=== PATIENT | male | born 1995 | race Caucasian/White ===

== ENCOUNTER 2017-07-09 01:18 | Emergency (ER) | payer OTHER ==
[~2017-07-09] VITALS: Ht 177.8 cm; Wt 109.1 kg
[2017-07-09] MEDS ORDERED: ACETAMINOPHEN/CODEINE 300-30 MG TABLET PO ONE (05:30)
[2017-07-09] MEDS ORDERED: IBUPROFEN 600 MG TABLET PO ONE (05:30)
[2017-07-09 05:38] VITALS: BP 144/85
== END 2017-07-09 05:40 | disposition home or self-care (01) ==
LOC: EMS 01:19
DX: S50.01XA Contusion of right elbow, initial encounter (principal); M54.6 Pain in thoracic spine; V43.52XA Car driver injured in collision with other type car in traffic accident, initial encounter; Y93.89 Activity, other specified; Y92.89 Other specified places as the place of occurrence of the external cause; Y99.8 Other external cause status
CPT/HCPCS: 99283

== ENCOUNTER 2018-01-13 03:01 | Emergency (ER) | payer OTHER ==
[~2018-01-13] VITALS: Ht 177.8 cm; Wt 103.0 kg
[2018-01-13 03:28] LABS: BASOPHILS % (AUTO) 0.8 % (0.0-2.0); EOSINOPHILS % (AUTO) 1.2 % (1.0-6.0); HEMATOCRIT 41.9 % (41-53); HEMOGLOBIN 14.6 g/dL (13.5-17.5); LYMPHOCYTES # (AUTO) 3.9 K/uL (1.0-4.8); LYMPHOCYTES % (AUTO) 33.9 % (22.0-44.0); MEAN CORPUSCULAR HEMOGLOBIN 29.9 pg (26.0-34.0); MEAN CORPUSCULAR HGB CONC 34.9 G/dL (31.0-37.0); MEAN CORPUSCULAR VOLUME 86 fL (80-100); MONOCYTES # (AUTO) 1.1 K/uL (0.1-1.0); MONOCYTES % (AUTO) 9.4 % (2.0-9.0); NEUTROPHILS # (AUTO) 6.3 K/uL (1.8-7.7); NEUTROPHILS % (AUTO) 54.7 % (40.0-70.0); PLATELET COUNT (AUTO) 329 K/uL (150-450); RED CELL DISTRIBUTION WIDTH 12.7 % (11.5-14.5)
[2018-01-13 03:39] LABS: ANION GAP 8 mmol/L (8-16); CALCIUM, TOTAL 8.9 mg/dL (8.8-10.5); CARBON DIOXIDE 31 mmol/L (22-29); CHLORIDE 100 mmol/L (98-107); CREATININE 0.88 mg/dL (0.60-1.30); GLOMERULAR FILTR. RATE CALC > 60 mL/min (>60); GLUCOSE,RANDOM 105 mg/dL (70-110); POTASSIUM 3.9 mmol/L (3.5-5.1); SODIUM SERUM 139 mmol/L (136-145); UREA NITROGEN, BLOOD 10 mg/dL (7-18)
[2018-01-13 03:45] LABS: ALANINE AMINOTRANSFERASE 34 U/L (12-78); ALBUMIN 4.2 g/dL (3.4-5.0); ALKALINE PHOSPHATASE 96 U/L (46-116); ASPARTATE AMINOTRANSFERASE 13 U/L (15-37); BILIRUBIN,TOTAL 0.3 mg/dL (0.1-1.0); TOTAL PROTEIN, SERUM 8.2 g/dL (6.4-8.2)
[2018-01-13 04:48] LABS: APPEARANCE,URINE CLEAR (CLEAR); BILIRUBIN,URINE NEGATIVE (NEGATIVE); GLUCOSE, URINE (UA) NEGATIVE (NEGATIVE); KETONES,URINE NEGATIVE (NEGATIVE); LEUKOCYTE ESTERASE ,URINE NEGATIVE (NEGATIVE); NITRATE,URINE NEGATIVE (NEGATIVE); OCCULT BLOOD,URINE NEGATIVE (NEGATIVE); PROTEIN,URINE TRACE (NEGATIVE); UROBILINOGEN,URINE 0.2 mg/dL (<=1.0)
[2018-01-13 05:03] LABS: BACTERIA,URINE None Seen /HPF (None Seen); RBC,URINE None Seen /HPF (0-2); SQUAMOUS EPITHELIAL CELL,UR Rare /LPF (None Seen); WBC,URINE None Seen /HPF (0-5)
[2018-01-13 06:40] VITALS: BP 130/88
== END 2018-01-13 06:53 | disposition home or self-care (01) ==
LOC: EMS 03:02
DX: N50.82 Scrotal pain (principal)
CPT/HCPCS: 76870; 99285

== ENCOUNTER 2022-11-27 21:20 | Emergency (ER) | payer OTHER ==
[~2022-11-27] VITALS: Ht 180.3 cm; Wt 127.0 kg
[2022-11-27 22:10] LABS: APPEARANCE,URINE CLEAR (CLEAR); BILIRUBIN,URINE NEGATIVE (NEGATIVE); GLUCOSE, URINE (UA) NEGATIVE (NEGATIVE); KETONES,URINE NEGATIVE (NEGATIVE); LEUKOCYTE ESTERASE ,URINE NEGATIVE (NEGATIVE); NITRATE,URINE NEGATIVE (NEGATIVE); OCCULT BLOOD,URINE NEGATIVE (NEGATIVE); PH,URINE 6.5 (5.0-8.0); PROTEIN,URINE NEGATIVE (NEGATIVE); SPECIFIC GRAVITIY, URINE 1.013 (1.003-1.030); UROBILINOGEN,URINE <=1.0 mg/dL (<=1.0)
[2022-11-27] MEDS ORDERED: KETOROLAC TROMETHAMINE 30 MG/ML VIAL IVP ONE (23:45)
[2022-11-28 00:11] LABS: BASOPHILS % (AUTO) 0.6 % (0.0-2.0); EOSINOPHILS % (AUTO) 0.9 % (1.0-6.0); HEMATOCRIT 41.5 % (41-53); LYMPHOCYTES # (AUTO) 3.4 K/uL (1.0-4.8); LYMPHOCYTES % (AUTO) 26.3 % (22.0-44.0); MEAN CORPUSCULAR HEMOGLOBIN 29.6 pg (26.0-34.0); MEAN CORPUSCULAR HGB CONC 33.8 G/dL (31.0-37.0); MEAN CORPUSCULAR VOLUME 88 fL (80-100); MONOCYTES % (AUTO) 7.8 % (2.0-9.0); NEUTROPHILS # (AUTO) 8.4 K/uL (1.8-7.7); NEUTROPHILS % (AUTO) 64.4 % (40.0-70.0); PLATELET COUNT (AUTO) 359 K/uL (150-450); RED BLOOD CELL COUNT(AUTO) 4.74 MIL/uL (4.50-5.90); RED CELL DISTRIBUTION WIDTH 13.1 % (11.5-14.5)
[2022-11-28 00:28] LABS: ANION GAP 10 mmol/L (8-16); CALCIUM, TOTAL 8.8 mg/dL (8.8-10.5); CARBON DIOXIDE 27 mmol/L (22-29); CHLORIDE 100 mmol/L (98-107); CREATININE 0.82 mg/dL (0.60-1.30); GLOMERULAR FILTR. RATE CALC > 60 mL/min (>60); GLUCOSE,RANDOM 105 mg/dL (70-110); POTASSIUM 3.5 mmol/L (3.5-5.1); SODIUM SERUM 137 mmol/L (136-145)
[2022-11-28 00:33] LABS: ALANINE AMINOTRANSFERASE 32 U/L (12-78); ALBUMIN 4.1 g/dL (3.4-5.0); ALKALINE PHOSPHATASE 99 U/L (46-116); ASPARTATE AMINOTRANSFERASE 16 U/L (15-37); BILIRUBIN,TOTAL 0.5 mg/dL (0.1-1.0); LIPASE 60 U/L (73-393); TOTAL PROTEIN, SERUM 8.3 g/dL (6.4-8.2)
[2022-11-28] MEDS ORDERED: IBUPROFEN 600 MG TABLET PO ONE (01:30)
[2022-11-28] MEDS ORDERED: ACETAMINOPHEN/CODEINE 300-30 MG TABLET PO ONE (01:30)
[2022-11-28] MEDS ORDERED: IBUP-1554 PO (01:32)
[2022-11-28] MEDS ORDERED: ACET-2080 PO (01:32)
[2022-11-28] MEDS ORDERED: TAMS-13 PO (01:32)
[2022-11-28 02:23] VITALS: BP 128/78
== END 2022-11-28 02:25 | disposition home or self-care (01) ==
LOC: EMS 21:21
DX: N20.9 Urinary calculus, unspecified (principal)
CPT/HCPCS: 99285; 96374; 80053; 81003; 83690; 85025; 36415; 74176; J1885

== ENCOUNTER 2022-12-25 13:21 | Emergency (ER) | payer OTHER ==
[~2022-12-25] VITALS: Ht 180.3 cm; Wt 122.7 kg
[~2022-12-25 13:21] MED LIST: ACET-2080 PO; IBUP-1554 PO; TAMS-13 PO
[2022-12-25 13:29] VITALS: TEMP 98.5
[2022-12-25] MEDS ORDERED: AMOX500C2 PO (17:43)
[2022-12-25 17:45] VITALS: BP 124/74; PULSE 69; RESP 17
== END 2022-12-25 17:56 | disposition home or self-care (01) ==
LOC: EMS 13:21
DX: H66.92 Otitis media, unspecified, left ear (principal); H61.22 Impacted cerumen, left ear
CPT/HCPCS: 99283; Z7502

== ENCOUNTER 2023-08-07 02:05 | Emergency (ER) | payer OTHER ==
[~2023-08-07] VITALS: Ht 180.3 cm; Wt 127.3 kg
[~2023-08-07 02:05] MED LIST changes: -ACET-2080 PO; +AMOX500C2 PO; -IBUP-1554 PO; -TAMS-13 PO
[2023-08-07 02:27] LABS: BASOPHILS % (AUTO) 0.8 % (0.0-2.0); EOSINOPHILS % (AUTO) 1.3 % (1.0-6.0); HEMATOCRIT 41.2 % (41-53); HEMOGLOBIN 13.7 g/dL (13.5-17.5); LYMPHOCYTES # (AUTO) 3.5 K/uL (1.0-4.8); LYMPHOCYTES % (AUTO) 29.1 % (22.0-44.0); MEAN CORPUSCULAR HEMOGLOBIN 29.2 pg (26.0-34.0); MEAN CORPUSCULAR HGB CONC 33.3 G/dL (31.0-37.0); MEAN CORPUSCULAR VOLUME 88 fL (80-100); MONOCYTES # (AUTO) 1.3 K/uL (0.1-1.0); MONOCYTES % (AUTO) 10.6 % (2.0-9.0); NEUTROPHILS % (AUTO) 58.2 % (40.0-70.0); PLATELET COUNT (AUTO) 370 K/uL (150-450); RED CELL DISTRIBUTION WIDTH 13.2 % (11.5-14.5); WHITE BLOOD COUNT (AUTO) 12.1 K/uL (4.5-11.0)
[2023-08-07 02:28] VITALS: BP 150/96; PULSE 73; RESP 16; TEMP 98.5
[2023-08-07 02:32] LABS: APPEARANCE,URINE CLEAR (CLEAR); BILIRUBIN,URINE NEGATIVE (NEGATIVE); COLOR,URINE LIGHT YELLOW (YELLOW); GLUCOSE, URINE (UA) NEGATIVE (NEGATIVE); KETONES,URINE NEGATIVE (NEGATIVE); LEUKOCYTE ESTERASE ,URINE NEGATIVE (NEGATIVE); NITRATE,URINE NEGATIVE (NEGATIVE); OCCULT BLOOD,URINE NEGATIVE (NEGATIVE); PROTEIN,URINE NEGATIVE (NEGATIVE); SPECIFIC GRAVITIY, URINE 1.025 (1.003-1.030); UROBILINOGEN,URINE <=1.0 mg/dL (<=1.0)
[2023-08-07 02:35] LABS: BACTERIA,URINE None Seen /HPF (None Seen); RBC,URINE None Seen /HPF (0-2); SQUAMOUS EPITHELIAL CELL,UR Rare /LPF (None Seen); WBC,URINE None Seen /HPF (0-5)
[2023-08-07 02:36] LABS: ANION GAP 8 mmol/L (8-16); CALCIUM, TOTAL 9.2 mg/dL (8.8-10.5); CARBON DIOXIDE 30 mmol/L (22-29); CHLORIDE 103 mmol/L (98-107); CREATININE 1.06 mg/dL (0.60-1.30); GLOMERULAR FILTR. RATE CALC > 60 mL/min (>60); GLUCOSE,RANDOM 131 mg/dL (70-110); SODIUM SERUM 141 mmol/L (136-145); UREA NITROGEN, BLOOD 12 mg/dL (7-18)
[2023-08-07 02:41] LABS: ALANINE AMINOTRANSFERASE 32 U/L (12-78); ALBUMIN 4.2 g/dL (3.4-5.0); ALKALINE PHOSPHATASE 99 U/L (46-116); ASPARTATE AMINOTRANSFERASE 12 U/L (15-37); BILIRUBIN,TOTAL 0.2 mg/dL (0.1-1.0); TOTAL PROTEIN, SERUM 7.8 g/dL (6.4-8.2)
[2023-08-07] MEDS: SODIUM CHLORIDE 0.9% 1,000 ML IV ONE (02:42)
[2023-08-07] MEDS: KETOROLAC TROMETHAMINE 30 MG/ML VIAL IVP ONE (02:42)
[2023-08-07] MEDS ORDERED: MORPHINE SULFATE 2 MG/ML SYRINGE IVP ONE (05:15)
[2023-08-07] MEDS ORDERED: ONDANSETRON HCL 4 MG/2 ML VIAL ONE (05:35)
[2023-08-07] MEDS: MORPHINE SULFATE 2 MG/ML SYRINGE IVP ONE (05:42)
[2023-08-07] MEDS ORDERED: METOCLOPRAMIDE HCL 5 MG/ML 2 ML VIAL IVP ONE (05:45)
[2023-08-07] MEDS ORDERED: TRAM-559 PO (06:18)
== END 2023-08-07 06:35 | disposition home or self-care (01) ==
LOC: EMS 02:06
DX: N20.9 Urinary calculus, unspecified (principal)
CPT/HCPCS: 99285; 74176; 96374; 96361; 96375; 80053; 81001; 85025; 36415; 74018; J1885; J2270; J2405; J7030

== ENCOUNTER 2023-12-01 05:49 | Emergency (ER) | payer MEDICAID, OTHER ==
[~2023-12-01] VITALS: Ht 180.3 cm; Wt 122.7 kg
[~2023-12-01 05:49] MED LIST changes: +TRAM50TA5 PO
[2023-12-01 06:20] VITALS: BP 128/77; PULSE 80; RESP 18; TEMP 97.7
[2023-12-01] MEDS: METHOCARBAMOL 500 MG TABLET PO ONE (08:49)
[2023-12-01] MEDS: KETOROLAC TROMETHAMINE 60 MG/2 ML VIAL IM ONE (08:50)
[2023-12-01] MEDS: LIDOCAINE 5% TRANSDERMAL PATCH TD ONE (08:50)
[2023-12-01] MEDS ORDERED: IBUP-1492 PO (08:59)
[2023-12-01] MEDS ORDERED: METH-659 PO (09:00)
[2023-12-01] MEDS ORDERED: LIDO700A15 TP (09:01)
== END 2023-12-01 09:05 | disposition home or self-care (01) ==
LOC: EMS 05:50
DX: M75.102 Unspecified rotator cuff tear or rupture of left shoulder, not specified as traumatic (principal)
CPT/HCPCS: 99283; 73030; 96372; J1885